=== PATIENT | female | born 1960 | race Caucasian/White ===

== ENCOUNTER → 2017-11-29 08:06 | Outpatient (CLI) | payer OTHER, SELFPAY ==
--- NOTE | 2017-11-29 | DI.US.S_ITS ---
PROCEDURE: US ABDOMEN COMPLETE INDICATIONS: UPPER RIGHT AND LEFT QUADRANT PAIN TECHNIQUE: Real-time scanning was performed of the abdominal and retroperitoneal organs, with image documentation. COMPARISON: [facility], US, ABDOMEN COMPLETE, 10/11/2014, 11:39. FINDINGS: Liver: Liver is normal in size and homogeneous in echotexture. A 9 mm diameter cyst is present within the right hepatic lobe. Gallbladder: The gallbladder wall is 2 mm thick. No stones, sludge, sonographic Alejo's sign, or pericholecystic fluid. Biliary ducts: Intrahepatic bile ducts are non-dilated. Extrahepatic bile duct caliber measures 5 mm. Normal is 6-7 mm or less in diameter, or 10 mm or less post-cholecystectomy. Pancreas: Visualized portions of the pancreas are sonographically normal. Spleen: Spleen is normal in size and homogeneous in echotexture. Kidneys: Kidneys are normal in size and echotexture. Right kidney measures 10.8 cm long; left kidney measures 11.1 cm long. No hydronephrosis or nephrolithiasis. No solid masses. An echogenic mass is present within the central left kidney which measures 2.5 x 1.9 x 2.8 cm and likely represents an angiomyolipoma. This measured 2.3 x 1.9 x 3.0 cm on the study dated 10/11/14. Aorta: Visualized aorta is normal in caliber at less than 3 cm. Iliacs: Proximal common iliac arteries are normal in caliber at less than 2.5 cm. IVC: Intrahepatic inferior vena cava is patent. Miscellaneous: No free abdominal fluid. IMPRESSION: 1. No cholelithiasis or findings to suggest choledocholithiasis or acute cholecystitis. 2. Stable left angiomyolipoma. Dictated by: Demi Mccartney M.D. on 11/29/2017 at 10:45 Approved by: Demi Mccartney M.D. on 11/29/2017 at 10:48
== END ==
PROVIDERS: Family Provider Specialist; PCP Specialist; Visit Provider Naturopath
DX: D17.71 Benign lipomatous neoplasm of kidney (principal); K76.89 Other specified diseases of liver; R10.11 Right upper quadrant pain; R10.12 Left upper quadrant pain
CPT/HCPCS: 76700

== ENCOUNTER → 2018-06-07 08:36 | Outpatient (CLI) | payer OTHER, SELFPAY ==
--- NOTE | 2018-06-07 | DI.MRI.S_ITS ---
PROCEDURE: MR PELVIS WO CON INDICATIONS: LOW BACK PAIN LEFT HIP PAIN TECHNIQUE: Noncontrast axial and oblique coronal T1 spin echo and STIR through the sacroiliac joints. COMPARISON: None. FINDINGS: Image quality: Excellent. Bones: The sacroiliac joints appear intact. No adjacent bone marrow edema to suggest active sacroiliitis. No bony ankylosis. No suspicious marrow space occupying lesions. Soft tissues: No presacral masses. Rectum appears normal in caliber and wall thickness. No pathologic free pelvic fluid. Incidental Tarlov cyst seen at the S2 level of the sacrum. IMPRESSION: Unremarkable appearance of the sacroiliac joints bilaterally. Dictated by: Arya Maguire M.D. on 06/07/2018 at 10:42 Approved by: Arya Maguire M.D. on 06/07/2018 at 10:49
--- NOTE | 2018-06-07 | DI.MRI.S_ITS ---
PROCEDURE: MR LUMBAR SPINE WO CON INDICATIONS: LOW BACK PAIN LEFT HIP PAIN TECHNIQUE: Noncontrast sagittal T1 spin echo and T2 fast echo, sagittal STIR, axial T1 and T2 fast spin echo through the lumbar spine. In cases with scoliosis, additional coronal T2 fast spin echo may be performed. COMPARISON: None. FINDINGS: Image quality: Excellent. Alignment and Curvature: There is normal bony alignment. Bone Marrow: There is scattered T2 hyperintense foci seen throughout the lumbar spine, for example within the L2 and L3 vertebral bodies, also the T12 vertebral body. Some of these demonstrate T1 hyperintensity in keeping with hemangiomas although others are indeterminate. No acute vertebral body compression fractures. Spinal Cord: Conus medullaris terminates at the L2 level. Visualized cord demonstrates normal signal and size. Paraspinous Soft Tissues: No paravertebral masses. Presumed T2 hyperintense left renal cyst. Bilateral Tarlov cysts measuring 2.0 cm at the S2 level. L1-L2: Normal appearance. L2-L3: Normal appearance. L3-L4: Minimal broad-based posterior disc bulge and bilateral facet arthropathy. No canal stenosis. No definite lateral recess narrowing. No foraminal stenosis. L4-L5: Broad-based posterior disc bulge and bilateral facet arthropathy. Mild canal narrowing. Ligamentum flavum hypertrophy. Symmetric partial effacement of the lateral recesses. Mild bilateral foraminal narrowing L5-S1: Broad-based posterior disc bulge and bilateral facet arthropathy. No central canal stenosis. Mild symmetric partial effacement of the lateral recesses. No foraminal stenosis. Sacroiliac joints demonstrate normal signal intensity, without ankylosis, bilaterally IMPRESSION: Lower lumbar degenerative disc disease and facet arthropathy. Mild L4-L5 canal narrowing. Bilateral subarticular narrowing, most prominently at L4-L5 although appears symmetric. Mild bilateral L4-L5 foraminal stenoses. Multilevel marrow signal changes, some of which demonstrate characteristic appearance of vertebral body hemangiomas although others are technically indeterminate. Please correlate clinically and if needed, bone scan could be performed or continued long-term surveillance with contrast-enhanced lumbar spine MRI Unremarkable appearance of the sacroiliac joints. Dictated by: Arya Maguire M.D. on 06/07/2018 at 10:08 Approved by: Arya Maguire M.D. on 06/07/2018 at 10:25
== END ==
PROVIDERS: Family Provider Specialist; PCP Specialist; Visit Provider Family Medicine
DX: M54.5 Low back pain (principal); M25.552 Pain in left hip; M51.36 Other intervertebral disc degeneration, lumbar region; M51.37 Other intervertebral disc degeneration, lumbosacral region; M47.816 Spondylosis without myelopathy or radiculopathy, lumbar region; M47.817 Spondylosis without myelopathy or radiculopathy, lumbosacral region; M48.061 Spinal stenosis, lumbar region without neurogenic claudication
CPT/HCPCS: 72148; 72195

== ENCOUNTER → 2018-06-15 10:42 | Outpatient (CLI) | payer OTHER, SELFPAY ==
--- NOTE | 2018-06-15 | DI.NM.S_ITS ---
PROCEDURE: NM BONE SCAN WHOLE BODY RADIOPHARMACEUTICAL: 23.0 mCi Tc-99m MDP IV. INDICATIONS: LOW BACK PAIN/ABNORMAL BRAIN MRI TECHNIQUE: Delayed whole-body scintigrams were obtained approximately 3-4 hours after intravenous injection of radiotracer. Anterior and posterior views were acquired from vertex to feet. Additional left and right oblique views of the pelvis and lower abdomen were obtained. COMPARISON: [facility], CT, SOFT TISSUE NECK W CONTRAST, 06/16/2015, 11:10. [facility], MR, MR LUMBAR SPINE WO CON, 06/07/2018, 8:51. [facility], MR, MR PELVIS WO CON, 06/07/2018, 9:15. FINDINGS: No abnormal isotope uptake is seen that would indicate presence of trauma or underlying infection or neoplasm. Note is made of a mild convex rightward scoliosis centered at the mid thoracic spine, approximately 8? estimated of dextroscoliosis. IMPRESSION: No bone scan abnormality is seen that would indicate trauma infection or neoplasm. Mild dextroscoliosis centered at the midthoracic spine. No significant degenerative changes found along the cervical, thoracic and lumbosacral spine. Sacroiliac joints appear normal. Dictated by: Jeremiah Messina M.D. on 06/15/2018 at 15:16 Approved by: Jeremiah Messina M.D. on 06/15/2018 at 15:19
== END ==
PROVIDERS: Family Provider Specialist; PCP Specialist; Visit Provider Family Medicine
DX: M54.5 Low back pain (principal)
CPT/HCPCS: 78306; A9503

== ENCOUNTER → 2018-07-17 10:48 | Outpatient (CLI) | payer OTHER, SELFPAY ==
--- NOTE | 2018-07-17 | DI.MG.S_ITS ---
BILATERAL DIGITAL SCREENING MAMMOGRAM 3D/2D WITH CAD: 07/17/2018 Comparison is made to exams dated: 05/29/2017 mammogram, 04/08/2016 mammogram, and 02/09/2015 mammogram - [facility]. The tissue of both breasts is heterogeneously dense. This may lower the sensitivity of mammography. Current study was also evaluated with a Computer Aided Detection (CAD) system. There is an oval equal density asymmetry with an indistinct margin in the right breast middle depth superior region seen on the mediolateral oblique view only. No other significant masses, calcifications, or other findings are seen in either breast. IMPRESSION: INCOMPLETE: NEEDS ADDITIONAL IMAGING EVALUATION The oval equal density asymmetry in the right breast is indeterminate. Mediolateral and spot compression views as well as additional views with possible ultrasound are recommended. This exam was interpreted at Station ID: [id number]. NOTE: For mammograms, a report in lay terms will be sent to the patient. Approximately 15% of breast malignancies will not be visualized mammographically. In the management of a palpable breast mass, a negative mammogram must not discourage biopsy of a clinically suspicious lesion. Electronically Signed By: Yury maldonado/katharine:07/17/2018 16:40:06 letter sent: Additional Imaging Needed ACR BI-RADS Category 0: Incomplete 3340F
== END ==
PROVIDERS: Family Provider Specialist; PCP Family Medicine; Visit Provider Family Medicine
DX: Z12.31 Encounter for screening mammogram for malignant neoplasm of breast (principal)
CPT/HCPCS: 77063; 77067

== ENCOUNTER → 2018-08-10 08:43 | Outpatient (CLI) | payer OTHER, SELFPAY ==
--- NOTE | 2018-08-10 | DI.US.S_ITS ---
LIMITED ULTRASOUND OF RIGHT BREAST: 08/10/2018 CLINICAL: Additional evaluation requested from prior study. Comparison is made to exams dated: 08/10/2018 mammogram, 07/17/2018 mammogram, 05/29/2017 mammogram, 04/08/2016 mammogram, and 02/09/2015 mammogram - [facility]. Real-time and Doppler ultrasound of the right breast upper outer quadrant and retroareolar regions were performed. Krishnamurthy scale images of the real-time examination were reviewed. No underlying breast mass or abnormality is identified. There is no convincing ultrasound correlate for the previously identified 0.5 cm oval equal density asymmetry with an indistinct margin in the right breast middle depth superior region seen on the mediolateral oblique view only on comparison screening mammograms. There is an incidentally noted 1.1 x 1.2 x 0.5 cm benign oval circumscribed mass in the retroareolar right breast which demonstrates no vascularity on Doppler ultrasound. There is a 0.4 x 0.3 x 0.2 cm benign oval circumscribed peripherally hypoechoic and centrally hyperechoic lymph node in the right breast at 9:30 position 7 cm from the nipple, which demonstrates no vascularity on Doppler ultrasound and no suspicious cortical thickening. There is a 0.7 x 0.5 x 0.3 cm benign oval circumscribed peripherally hypoechoic and centrally hyperechoic lymph node in the right breast at 9:30 position 5 cm from the nipple, which demonstrates hilar vascularity on Doppler ultrasound and no suspicious cortical thickening. IMPRESSION: PROBABLY BENIGN 1) No convincing ultrasound correlate for the 0.5 cm asymmetry in the superior right breast seen on screening and diagnostic mammography. A follow-up mammogram and targeted ultrasound in 6 months is recommended to demonstrate stability. The patient is advised to monitor her breasts and to return sooner for re-evaluation should she feel anything grow or change. 2) 1.1 cm oval circumscribed hypoechoic mass in the retroareolar right breast that is most consistent with a prominent fat lobule, less likely a fibroadenoma. A follow-up mammogram and targeted ultrasound in 6 months is recommended to demonstrate stability. The patient is advised to monitor her breasts and to return sooner for re-evaluation should she feel anything grow or change. 3) Benign-appearing intramammary lymph nodes in the right breast at 9:30 position 7 cm from the nipple and at 9:30 position 5 cm from the nipple. This exam was interpreted at Station ID: [id number]. Electronically Signed By: Juancarlos Dixon M.D. ecl/:08/13/2018 09:40:44 letter sent: Followup Recommended Ultrasound BI-RADS: 3 Probably benign
--- NOTE | 2018-08-10 | DI.MG.S_ITS ---
UNILATERAL RIGHT DIGITAL DIAGNOSTIC MAMMOGRAM 3D/2D WITH ADDITIONAL VIEWS: 08/10/2018 CLINICAL: Additional evaluation requested from prior study. Comparison is made to exams dated: 07/17/2018 mammogram, 05/29/2017 mammogram, and 04/08/2016 mammogram - [facility]. The tissue of right breast is heterogeneously dense. This may lower the sensitivity of mammography. Previously identified 0.5 cm oval equal density asymmetry with an indistinct margin in the right breast middle depth superior region seen on the mediolateral oblique view only on comparison screening mammograms persists with additional views, and localizes to the upper outer right breast on additional views. IMPRESSION: INCOMPLETE: NEEDS ADDITIONAL IMAGING EVALUATION Previously identified oval equal density asymmetry with an indistinct margin in the right breast middle depth superior region seen on the mediolateral oblique view only on comparison screening mammograms persists with additional views. A targeted ultrasound is recommended for further evaluation, and will be performed immediately following this exam. This exam was interpreted at Station ID: [id number]. NOTE: For mammograms, a report in lay terms will be sent to the patient. Approximately 15% of breast malignancies will not be visualized mammographically. In the management of a palpable breast mass, a negative mammogram must not discourage biopsy of a clinically suspicious lesion. Electronically Signed By: Juancarlos Dixon M.D. ecl/:08/10/2018 13:20:59 letter sent: Additional Imaging Needed ACR BI-RADS Category 0: Incomplete 3340F
== END ==
PROVIDERS: Family Provider Specialist; PCP Family Medicine; Visit Provider Family Medicine
DX: R92.8 Other abnormal and inconclusive findings on diagnostic imaging of breast (principal); N63.10 Unspecified lump in the right breast, unspecified quadrant; R59.0 Localized enlarged lymph nodes
CPT/HCPCS: 76642; 77065; G0279

== ENCOUNTER → 2019-02-25 08:01 | Outpatient (CLI) | payer OTHER, SELFPAY ==
--- NOTE | 2019-02-25 | DI.MG.S_ITS ---
UNILATERAL RIGHT DIGITAL DIAGNOSTIC MAMMOGRAM 3D/2D SHORT-TERM FOLLOW-UP: 02/25/2019 CLINICAL: Patient returns for a 6 month follow up of the right breast. Comparison is made to exams dated: 07/17/2018 mammogram, 05/29/2017 mammogram, and 04/08/2016 mammogram - [facility]. The tissue of right breast is heterogeneously dense. This may lower the sensitivity of mammography. Redemonstration of the previously described oval equal density asymmetry in the right breast middle depth superior region seen on the mediolateral oblique view only. This is less prominent and decreased in size. No other significant masses or calcifications are seen in the breast. IMPRESSION: INCOMPLETE: NEEDS ADDITIONAL IMAGING EVALUATION The oval equal density asymmetry in the right breast remains indeterminate. Further evaluation by sonogram is recommended which is scheduled to immediately follow this examination. This exam was interpreted at Station ID: [id number]. NOTE: For mammograms, a report in lay terms will be sent to the patient. Approximately 15% of breast malignancies will not be visualized mammographically. In the management of a palpable breast mass, a negative mammogram must not discourage biopsy of a clinically suspicious lesion. Electronically Signed By: Dago Carlos M.D. aty/:02/25/2019 08:57:58 ACR BI-RADS Category 0: Incomplete 3340F
--- NOTE | 2019-02-25 | DI.US.S_ITS ---
ULTRASOUND OF RIGHT BREAST AND AXILLA: 02/25/2019 CLINICAL: Additional evaluation requested from prior study., 6 month follow-up. Comparison is made to exams dated: 02/25/2019 mammogram, 08/10/2018 ultrasound, 08/10/2018 mammogram, 07/17/2018 mammogram, 05/29/2017 mammogram, and 04/08/2016 mammogram - [facility]. Color flow and real-time ultrasound of the right breast axilla were performed. Krishnamurthy scale images of the real-time examination were reviewed. No significant abnormalities were seen sonographically in the right axilla. Previously described 1.1 cm oval circumscribed hypoechoic mass in the retroareolar right breast is again noted but appears less mass-like and likely represents a prominent fat lobule of breast tissue. No new or other suspicious abnormalities are seen in the right breast. IMPRESSION: PROBABLY BENIGN There is no abnormality seen in the right breast to correspond with the mammography finding in the superior aspect middle depth. The 1.1 cm oval circumscribed hypoechoic mass in the retroareolar right breast is again noted but appears less mass-like and likely represents a prominent fat lobule of breast tissue and less likely a fibroadenoma. A follow-up bilateral mammogram and a right ultrasound in 6 months is recommended to demonstrate stability. This exam was interpreted at Station ID: [id number]. Electronically Signed By: Dago Carlos M.D. at/:02/25/2019 09:34:53 letter sent: Followup Recommended Ultrasound BI-RADS: 3 Probably benign
== END ==
PROVIDERS: Family Provider Specialist; PCP Family Medicine; Visit Provider Family Medicine
DX: R92.8 Other abnormal and inconclusive findings on diagnostic imaging of breast (principal); N63.10 Unspecified lump in the right breast, unspecified quadrant
CPT/HCPCS: 76642; 77065; G0279

== ENCOUNTER → 2020-03-03 12:57 | Outpatient (CLI) | payer OTHER, SELFPAY ==
--- NOTE | 2020-03-03 13:40 | DI.MG.S_ITS ---
Patient Name: JOANNE PATEL date: 1960 Sex: F Attending Physician: Zenon Indications: Date: 03/03/2020 13:04 At the request of: JOSE CARLOS JIMÉNEZ Procedure: MM diagnostic mammo BI BILATERAL DIGITAL DIAGNOSTIC MAMMOGRAM 3D/2D: 03/03/2020 CLINICAL: One year follow up. Comparison is made to exams dated: 02/25/2019 mammogram, 08/10/2018 mammogram, 07/17/2018 mammogram, 05/29/2017 mammogram, 04/08/2016 mammogram, and 02/25/2019 [facility]. The tissue of both breasts is heterogeneously dense. This may lower the sensitivity of mammography. There is a oval equal density Asymmetry in the right breast middle depth superior region seen on the mediolateral oblique view only. This is less prominent. This was not seen on prior ultrasounds. No other significant masses, calcifications, or other findings are seen in either breast. IMPRESSION: INCOMPLETE: NEEDS ADDITIONAL IMAGING EVALUATION Asymmetry in the right breast is less prominent and remains indeterminate. A targeted ultrasound is recommended and will immediately follow. Additionally, recommend ultrasound of the retroareolar right breast for possible mass seen on prior ultrasounds. This exam was interpreted at Station ID: [id number]. NOTE: For mammograms, a report in lay terms will be sent to the patient. Approximately 15% of breast malignancies will not be visualized mammographically. In the management of a palpable breast mass, a negative mammogram must not discourage biopsy of a clinically suspicious lesion. Electronically Signed By: Devonte Henson M.D. Continued Report - Page 2 of 2 Patient Name: JOANNE PATEL date: 1960 Sex: F Attending Physician: Zenon Indications: Date: 03/03/2020 13:04 At the request of: JOSE CARLOS JIMÉNEZ Procedure: MM diagnostic mammo BI slc/:03/03/2020 13:40:16 ACR BI-RADS Category 0: Incomplete 3340F
--- NOTE | 2020-03-03 13:58 | DI.US.S_ITS ---
Patient Name: JOANNE PATEL date: 1960 Sex: F Attending Physician: Zenon Indications: Date: 03/03/2020 13:51 At the request of: JOSE CARLOS JIMÉNEZ Procedure: US breast RT limited LIMITED ULTRASOUND OF RIGHT BREAST: 03/03/2020 CLINICAL: Patient returns today to evaluate a focal asymmetry in the right breast. Comparison is made to exams dated: 03/03/2020 mammogram, 02/25/2019 ultrasound, 02/25/2019 mammogram, and 08/10/2018 ultrasound - [facility]. Color flow and real-time ultrasound of the right breast 9-10 o'clock, and retroareolar regions were performed. Krishnamurthy scale images of the real-time examination were reviewed. No significant abnormalities were seen sonographically in the right breast superior lateral quadrant in the region of asymmetry seen on mammogram. No retroareolar mass demonstrated. There is a benign oval normal lymph node with a circumscribed margin in the right breast at 9 o'clock posterior depth again seen. This oval normal lymph node displays fatty hilum. No cortical thickening. IMPRESSION: PROBABLY BENIGN No sonographic evidence of malignancy. No ultrasound correlate to the asymmetry. No retroareolar mass. Benign intramammary lymph node is seen. A follow-up mammogram in 6 months is recommended to demonstrate stability of the asymmetry. Exam findings were conveyed to the patient. This exam was interpreted at Station ID: [id number]. Electronically Signed By: Devonte Henson M.D. slc/:03/03/2020 17:07:40 Continued Report - Page 2 of 2 Patient Name: JOANNE PATEL date: 1960 Sex: F Attending Physician: Zenon Indications: Date: 03/03/2020 13:51 At the request of: JOSE CARLOS JIMÉNEZ Procedure: US breast RT limited
== END ==
PROVIDERS: Family Provider Specialist; PCP Internal Medicine; Referring Provider Internal Medicine; Visit Provider Internal Medicine
DX: R92.8 Other abnormal and inconclusive findings on diagnostic imaging of breast (principal); N64.89 Other specified disorders of breast; M81.0 Age-related osteoporosis without current pathological fracture; Z78.0 Asymptomatic menopausal state; E06.3 Autoimmune thyroiditis
CPT/HCPCS: 76642; 77066; 77080; G0279

== ENCOUNTER → 2020-11-12 12:41 | Outpatient (CLI) | payer OTHER, SELFPAY ==
--- NOTE | 2020-11-12 | DI.MG.S_ITS ---
UNILATERAL RIGHT DIGITAL DIAGNOSTIC MAMMOGRAM 3D/2D SHORT-TERM FOLLOW-UP: 11/12/2020 CLINICAL: Short term follow up of the right breast. Comparison is made to exams dated: 03/03/2020 mammogram, 02/25/2019 mammogram, 08/10/2018 mammogram, 07/17/2018 mammogram, 03/03/2020 ultrasound, and 02/25/2019 ultrasound - [facility]. The tissue of right breast is heterogeneously dense. This may lower the sensitivity of mammography. There is a stable benign oval equal density asymmetry in the right breast middle depth superior region seen on the mediolateral oblique view only. This was not seen on the prior ultrasound. This asymmetry has been stable or less prominent dating back to the prior exam from 07/17/2018, and is therefore considered benign. No other significant masses or calcifications are seen in the breast. IMPRESSION: BENIGN There is no mammographic evidence of malignancy. Return to annual mammogram screening schedule is recommended. This exam was interpreted at Station ID: [id number]. NOTE: For mammograms, a report in lay terms will be sent to the patient. Approximately 15% of breast malignancies will not be visualized mammographically. In the management of a palpable breast mass, a negative mammogram must not discourage biopsy of a clinically suspicious lesion. Electronically Signed By: Raúl hinton/katharine:11/12/2020 13:32:10 letter sent: Normal Exam ACR BI-RADS Category 2: Benign Finding(s) 3342F
== END ==
PROVIDERS: Family Provider Specialist; PCP Internal Medicine; Referring Provider Internal Medicine; Visit Provider Internal Medicine
DX: R92.8 Other abnormal and inconclusive findings on diagnostic imaging of breast (principal); N64.89 Other specified disorders of breast
CPT/HCPCS: 77065; G0279

== ENCOUNTER → 2021-05-01 13:58 | Outpatient (CLI) | payer OTHER, SELFPAY ==
--- NOTE | 2021-05-01 | DI.MG.S_ITS ---
BILATERAL DIGITAL SCREENING MAMMOGRAM 3D/2D WITH CAD: 05/01/2021 CLINICAL: Routine screening. Comparison is made to exams dated: 03/03/2020 mammogram, 07/17/2018 mammogram, and 05/29/2017 mammogram - [facility]. There are scattered fibroglandular elements in both breasts. Current study was also evaluated with a Computer Aided Detection (CAD) system. No significant masses, calcifications, or other findings are seen in either breast. There has been no significant interval change. IMPRESSION: NEGATIVE There is no mammographic evidence of malignancy. A 1 year screening mammogram is recommended. This exam was interpreted at Station ID: [id number]. NOTE: For mammograms, a report in lay terms will be sent to the patient. Approximately 15% of breast malignancies will not be visualized mammographically. In the management of a palpable breast mass, a negative mammogram must not discourage biopsy of a clinically suspicious lesion. Electronically Signed By: Marixa govea/katharine:05/03/2021 11:36:52 letter sent: Normal Exam ACR BI-RADS Category 1: Negative 3341F
== END ==
PROVIDERS: Family Provider Specialist; PCP Internal Medicine; Referring Provider Internal Medicine; Visit Provider Internal Medicine
DX: Z12.31 Encounter for screening mammogram for malignant neoplasm of breast (principal)
CPT/HCPCS: 77063; 77067

== ENCOUNTER → 2022-05-03 09:48 | Outpatient (CLI) | payer OTHER, SELFPAY ==
--- NOTE | 2022-05-03 | DI.MG.S_ITS ---
BILATERAL DIGITAL SCREENING MAMMOGRAM 3D/2D WITH CAD: 05/03/2022 CLINICAL: Routine screening. Comparison is made to exams dated: 05/01/2021 mammogram, 11/12/2020 mammogram, 03/03/2020 mammogram, 02/25/2019 mammogram, 08/10/2018 mammogram, and 07/17/2018 mammogram - [facility]. There are scattered areas of fibroglandular density in both breasts (category b / 25%-50% glandular tissue). Current study was also evaluated with a Computer Aided Detection (CAD) system. There is a possible developing irregular high density asymmetry in the left breast at 5 o'clock middle depth. No other significant masses, calcifications, or other findings are seen in either breast. IMPRESSION: INCOMPLETE: NEEDS ADDITIONAL IMAGING EVALUATION The possible developing irregular high density asymmetry in the left breast is indeterminate. Additional views with possible ultrasound are recommended. Based on the Tyrer Cuzick model (a risk assessment model) the patient's lifetime risk is 6.9% and her 10 year risk is 3.0%. According to the ACR, ACS, and NCCN guidelines, an annual breast MRI exam along with mammogram is recommended if the patient's lifetime risk is 20% or greater. This exam was interpreted at Station ID: [id number]. NOTE: For mammograms, a report in lay terms will be sent to the patient. Approximately 15% of breast malignancies will not be visualized mammographically. In the management of a palpable breast mass, a negative mammogram must not discourage biopsy of a clinically suspicious lesion. Electronically Signed By: Marixa govea/katharine:05/03/2022 13:32:43 letter sent: Additional Imaging Needed ACR BI-RADS Category 0: Incomplete 3340F
== END ==
PROVIDERS: Family Provider Specialist; PCP Internal Medicine; Referring Provider Internal Medicine; Visit Provider Internal Medicine
DX: Z12.31 Encounter for screening mammogram for malignant neoplasm of breast (principal); M81.0 Age-related osteoporosis without current pathological fracture; Z78.0 Asymptomatic menopausal state
CPT/HCPCS: 77063; 77067; 77080

== ENCOUNTER → 2023-05-16 15:48 | Outpatient (CLI) | payer OTHER, SELFPAY ==
--- NOTE | 2023-05-16 | DI.MG.S_ITS ---
BILATERAL DIGITAL SCREENING MAMMOGRAM 3D/2D WITH CAD: 05/16/2023 CLINICAL: Routine screening. Comparison is made to exams dated: 05/03/2022 mammogram, 05/01/2021 mammogram, and 03/03/2020 [facility]. Both breasts are heterogeneously dense, which may obscure small masses (category c / 51-75% glandular tissue). Current study was also evaluated with a Computer Aided Detection (CAD) system. No significant masses, calcifications, or other findings are seen in either breast. There has been no significant interval change. IMPRESSION: NEGATIVE There is no mammographic evidence of malignancy. A 1 year screening mammogram is recommended. Based on the Tyrer Cuzick model (a risk assessment model) the patient's lifetime risk is 10.1% and her 10 year risk is 4.5%. According to the ACR, ACS, and NCCN guidelines, an annual breast MRI exam along with mammogram is recommended if the patient's lifetime risk is 20% or greater. This exam was interpreted at Station ID: [id number]. NOTE: For mammograms, a report in lay terms will be sent to the patient. Approximately 15% of breast malignancies will not be visualized mammographically. In the management of a palpable breast mass, a negative mammogram must not discourage biopsy of a clinically suspicious lesion. Electronically Signed By: Giacomo hernández/katharine:05/17/2023 08:27:15 letter sent: Normal Exam ACR BI-RADS Category 1: Negative [id number]
== END ==
PROVIDERS: Family Provider Specialist; PCP Internal Medicine; Referring Provider Internal Medicine; Visit Provider Internal Medicine
DX: Z12.31 Encounter for screening mammogram for malignant neoplasm of breast (principal)
CPT/HCPCS: 77063; 77067

== ENCOUNTER → 2024-03-19 14:34 | Outpatient (CLI) | payer OTHER, SELFPAY ==
--- NOTE | 2024-03-19 14:37 | DI.RAD.S_ITS ---
PROCEDURE: XR THORACIC SPINE 3V INDICATIONS: BACK PAIN TECHNIQUE: 3 views of the thoracic spine were acquired. COMPARISON: None. FINDINGS: Thoracic spine curvature and alignment: Mild idiopathic scoliotic curve appreciated. Bones: There are no osseous abnormalities. Disc spaces: Moderate degenerative disc disease seen throughout the mid lower thoracic spine. Intervertebral foramen: Grossly normal in width. Soft tissues: No soft tissue swelling, calcification or mass. 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 Dictated by: Kwan Issa M.D. on 03/20/2024 at 10:59 Approved by: Kwan Issa M.D. on 03/20/2024 at 11:00
== END ==
LOC: RAD 14:35
PROVIDERS: Family Provider Specialist; PCP Internal Medicine; Referring Provider Internal Medicine; Visit Provider Internal Medicine
DX: M51.34 Other intervertebral disc degeneration, thoracic region (principal); M54.9 Dorsalgia, unspecified
CPT/HCPCS: 72072

== ENCOUNTER → 2024-06-26 08:48 | Outpatient (CLI) | payer OTHER, SELFPAY ==
--- NOTE | 2024-06-26 08:49 | DI.US.S_ITS ---
PROCEDURE: US ABDOMEN COMPLETE INDICATIONS: ANGIOMYOLIPOMA KIDNEY/LIVER CYSTS TECHNIQUE: Real-time scanning was performed of the abdominal and retroperitoneal organs, with image documentation. COMPARISON: [facility], [place], US ABDOMEN COMPLETE, 11/29/2017, 8:44. (Additional prior imaging is not available for review from the archive at the time of this dictation.) FINDINGS: Liver: Liver is normal in size and demonstrates a 2.8 cm cyst within the right liver lobe, of with internal debris. Gallbladder: No findings of gallstones or sludge are seen. The gallbladder wall is not thickened, measuring 3 mm or less. No specific pericholecystic fluid is seen. The sonographic Alejo sign is negative. Biliary ducts: Intrahepatic bile ducts are non-dilated. Extrahepatic bile duct caliber measures 6.6 mm. Normal is 6-7 mm or less in diameter, or 10 mm or less post-cholecystectomy. Pancreas: Visualized portions of the pancreas are sonographically normal. Spleen: Spleen is normal in size and homogeneous in echotexture. Kidneys: Kidneys are normal in size and echotexture. Right kidney measures 9.2 cm long; left kidney measures 10.7 cm long. No hydronephrosis or nephrolithiasis. There is a hyperechoic nodule seen at the superior mid aspect of the left kidney measuring 2.3 x 2 x 2 cm. Aorta: Visualized aorta is normal in caliber at less than 3 cm. Iliacs: Proximal common iliac arteries are normal in caliber at less than 2.5 cm. IVC: Intrahepatic inferior vena cava is patent. Miscellaneous: No free abdominal fluid. IMPRESSION: Presumed angiomyolipoma again seen involving the superior mid left kidney, measuring up to 2.3 cm on these images. There is a complex cyst seen involving the right liver, measuring up to 2.8 cm. Dictated by: Tom Hope M.D. on 06/26/2024 at 10:08 Approved by: Tom Hope M.D. on 06/26/2024 at 10:19
--- NOTE | 2024-06-26 08:49 | DI.RAD.S_ITS ---
PROCEDURE: XR DEXA AXIAL SKELETON INDICATIONS: OSTEOPOROSIS SCREENING/ANGIOMYOLIPOMA KIDNEY/LIVER COMPARISON: [facility], CR, XR DEXA AXIAL SKELETON, 05/03/2022, 11:08. [facility], CR, XR DEXA AXIAL SKELETON, 03/03/2020, 14:41. FINDINGS: Lumbar Spine: L1-L4. Bone mineral density 0.704 g/cm2, T score -3.1. Left Hip: Bone mineral density 0.751 g/cm2, T score -1.6. Left Femoral Neck: Bone mineral density 0.607 g/cm2, T score -2.2. Fracture Risk Calculation (when applicable): 10-year fracture risk of a major osteoporotic fracture 11% percent and of a hip fracture 1.8 percent. (T score greater or equal to -1.0 to: NORMAL) (T score from -1.1 to -2.4: OSTEOPENIA) (T score less than or equal to -2.5: OSTEOPOROSIS) IMPRESSION: Osteoporosis. Follow-up guidelines as follows: Osteoporosis: Consider a repeat DEXA and Vertebral Fracture Assessment (VFA) exam in 2 years or sooner if medically necessary, to reassess this patient's status. Osteopenia: Consider a repeat DEXA in 2-3 years to reassess this patient's status, or if there is a new clinical indication. Normal: Consider a repeat DEXA in 5 years or sooner, or if there is a new clinical indication. All treatment decisions require clinical judgment and consideration of individual patient factors, including patient preferences, comorbidities, previous drug use, risk factors not captured in the FRAX model (e.g., frailty, falls, vitamin D deficiency, increased bone turnover, interval significant decline in bone density ) and possible under- or over-estimation of fracture risk by FRAX. In addition, the NOF Guide recommends that FDA-approved medical therapies be considered in postmenopausal women and men age >= 50 years with a: * Hip or vertebral (clinical or morphometric) fracture * T-score of <=-2.5 at the spine or hip * Ten-year fracture probability by FRAX of >= 3% for hip fracture or >=20% for major osteoporotic fracture. People with diagnosed cases of osteoporosis or at high risk for fracture should have regular bone mineral density tests. For patients eligible for Medicare, routine testing is allowed once every 2 years. The testing frequency can be increased to one year for patients who have rapidly progressing disease, those who are receiving or discontinuing medical therapy to restore bone mass, or have additional risk factors. Dictated by: Devonte Henson M.D. on 06/27/2024 at 22:16 Approved by: Devonte Henson M.D. on 06/27/2024 at 22:25
== END ==
PROVIDERS: Family Provider Specialist; PCP Internal Medicine; Referring Provider Internal Medicine; Visit Provider Internal Medicine
DX: D17.71 Benign lipomatous neoplasm of kidney (principal); K76.89 Other specified diseases of liver; M81.0 Age-related osteoporosis without current pathological fracture; Z78.0 Asymptomatic menopausal state
CPT/HCPCS: 76700; 77080

== ENCOUNTER 2024-06-27 15:15 | Outpatient (RCR) | payer OTHER, SELFPAY ==
--- NOTE | 2024-03-13 12:54 | PT.OIE ---
Current Diagnoses Female genital prolapse, unspecified (03/13/24) Past Surgical History (Last Updated 01/24/18 @ 12:00 by Vanessa Ruiz) History of inguinal hernia repair History of third molar tooth extraction Status post LASIK surgery Visit Care Team Role Provider Type Debo Salcedo MD Family Provider Physician Specialty: ADZING AND BORING MACHINE HELPER Address: [address] [place] [address], [id number] Email: [email or web address] Braxton Attending Provider Advanced Resident Services Manager Primary Care Provider Referring Provider Specialty: Family Practice Address: [address] [place] [address], [id number] Email: [email or web address] Physical Therapy Initial Evaluation PT-OP-A Visit Information Start: 03/13/24 10:38 Freq: Status: Active Protocol: Document 03/13/24 10:30 [facility] (Rec: 03/13/24 12:26 [facility] [id number]) Out-Patient Physical Therapy Visit Information Visit Information Visit Type Initial Evaluation Visit Start Time 10:30 Visit Stop Time 11:15 Visit Number 1 Evaluation Information Evaluation Date 03/13/24 PT-OP-B Current Condition Start: 03/13/24 10:38 Freq: Status: Active Protocol: Document 03/13/24 10:40 [facility] (Rec: 03/13/24 11:20 [facility] [id number]) Current Condition History of Current Condition Onset Date 7-8 years ago Current Complaints pelvic pressure and heaviness along, stress incontinence throughout the day History of Current Condition over the last 7-8 years she is noting increased prolapse, she notes first thing that she doesn't feel the prolapse but then as she starts her day she will start to note her prolapse, its worse with bending and lifting. She stopped her exercises routine at the gym becuase she was worried about making anything worse. She is only walking at this time for exercise as she is not sure what is making the prolapse worse. Urinary Leaking can range from nothing to a slightly larger amount but Mikayla reports she is not aware of when the leakage is occurring but will notice a spot on her panty liner that can vary in severity day to day. She denies any leakage at night. past medical history includes osteoporosis and Mikayla would like to be able to engage in a weight training program at the gym without feeling that she is making the prolapse worse. Treatment Goals Patient/Caregiver Goals Decrease urinary leakage, improve strength and be able to engage in a weight lifting program at the gym PT-OP-I Pelvic Floor Start: 03/13/24 10:38 Freq: Status: Active Protocol: Document 03/13/24 10:40 [facility] (Rec: 03/13/24 12:41 [facility] [id number]) Pelvic Floor Assessment Urine Pelvic Floor Surgery No Urinary Symptoms Prolapse,Falling Out Feeling/ Heavy Other Urinary Symptoms urinary stress incontinence Leakage Size Small Leakage Cause Cough,Exercise,Lifting,Sneeze Other Leakage Causes leakage is happening throughout the day despite activity Leaks Per Day constant Voiding Frequency 6-8 times per day Nocturia 0-1 Urine Pad Type Panty Liner Pelvic Clock Pelvic Clock 12-3 Atrophy Pelvic Clock 3-6 Atrophy Pelvic Clock 6-9 Atrophy Pelvic Clock 9-12 Atrophy Pelvic Clock Other more atrophy noted on the left side of the pelvic clock Prolapse Prolapse Comments vaginal wall prolapse Contraction Ability Voluntary Contraction Weak Voluntary Relaxation Weak Manual Muscle Testing Left 1 Manual Muscle Testing Right 2 Manual Muscle Testing Anterior 1 Manual Muscle Testing Posterior 2 Muscle Endurance (Seconds) 4 PT-OP-Q Treatments Start: 03/13/24 12:26 Freq: Status: Active Protocol: Document 03/13/24 10:30 [facility] (Rec: 03/13/24 12:28 [facility] [id number]) Therapeutic Exercises Supine Exercises pelvic floor long holds Supine Exercise Name pt was advised she could use a ball for adductor assist with long holds Side bilateral Reps/Minutes 10 reps holding 10 seconds and relaxing 10 seconds PT-OP-T Assessment and Plan Start: 03/13/24 10:38 Freq: Status: Active Protocol: Document 03/13/24 10:30 [facility] (Rec: 03/13/24 12:37 [facility] [id number]) Physical Therapy Assessment Rehab Potential Rehabilitation Potential Excellent Evaluation Complexity Number of Personal Factors/Comorbidities 0 Number of Body Systems Impaired 1-2 Clinical Presentation at Evaluation Stable Impairments Impairments Activity Tolerance,Functional Activities,Strength,Tone Other Impairments urinary incontinence and pelvic organ prolapse Goals 3 Impairment decreased strength and endurance of the pelvic floor Short Term Goal (STG) Mikayla is able to sustain a pelvic floor contraction x 10 seconds in supine STG Duration x 5 weeks Correction Goal (LTG) Mikayla is able to sustain a pelvic floor contraction x 5 seconds or greater in standing LTG Duration x 12 weeks 2 Impairment pelvic pressure and heaviness with exertion and at the end of the day Short Term Goal (STG) Mikayla is educated on pelvic floor exercises to help with support to the pelvic organs and decreasing complaints of pelvic pressure STG Duration 4 weeks Correction Goal (LTG) Mikayla reports a overall significant decrease in pelvic pressure and heaviness LTG Duration 12 weeks 1 Impairment urinary stress incontinence happening throughout the day despite activity Correction Goal (LTG) Mikayla reports a overall reduction in urinary stress incontinence LTG Duration 12 weeks Assessment Summary Assessment Mikayla is a 64 year old female presenting to PT with uterovaginal prolapse with worsening complaints of urinary leakage. She reports her symptoms of pelvic organ prolapse began approx 7-8 years ago and are slowly worsening. She also has been diagnosed with osteoporosis and had been using weights at the gym but she feels that this may have exacerbated her prolapse symptoms. She seeks consult on a exercise program that is safe for her pelvic floor and that helps to keep her strong for her osteoporosis. With pelvic floor exam today Mikayla tests weak in her anterior pelvic floor and left lateral wall of the pelvic floor with a 1/5 MMT. She is a 2/5 MMT for the posterior and right lateral wall. Sustaining a pelvic floor contraction is difficult for her and she tends to hold her breath when attempting a pelvic floor contraction. Treatment will focus on pelvic floor isolation and endurance training starting in supine and progressing to upright positions. We will then focus on form with her exercises and help her to return to weight lifting using the correct technique and core control to decrease any downward pressure onto the pelvic floor. She is a good candidate for PT Physical Therapy Plan Frequency and Duration Frequency of Treatment 1x/Week Duration of treatment (weeks) 12 Plan of Care Start Date 03/13/24 Plan of Care End Date 05/29/24 Therapeutic Interventions Therapeutic Interventions Home Exercise Program,Patient/ Caregiver Education,Self-Care/ Home Management,Therapeutic Exercises Modalities Biofeedback Next Visit Focus/Plan Next Note Type Treatment Note Next Visit Plan Begin EMG biofeedback training for the pelvic floor next visit and start working towards lateral hip strengthening
--- NOTE | 2024-03-20 13:22 | PT.OTN ---
Current Diagnoses Female genital prolapse, unspecified (03/20/24) Physical Therapy Treatment Note PT-OP-A Visit Information Start: 03/13/24 10:38 Freq: Status: Active Protocol: Document 03/20/24 10:45 [facility] (Rec: 03/20/24 11:33 [facility] [id number]) Out-Patient Physical Therapy Visit Information Visit Information Visit Type Treatment Note Visit Start Time 10:45 Visit Stop Time 11:30 Visit Number 2 Evaluation Information Evaluation Date 03/13/24 PT-OP-B Current Condition Start: 03/13/24 10:38 Freq: Status: Active Protocol: Document 03/13/24 10:40 [facility] (Rec: 03/13/24 11:20 [facility] [id number]) Current Condition History of Current Condition Onset Date 7-8 years ago Current Complaints pelvic pressure and heaviness along, stress incontinence throughout the day History of Current Condition over the last 7-8 years she is noting increased prolapse, she notes first thing that she doesn't feel the prolapse but then as she starts her day she will start to note her prolapse, its worse with bending and lifting. She stopped her exercises routine at the gym becuase she was worried about making anything worse. She is only walking at this time for exercise as she is not sure what is making the prolapse worse. Urinary Leaking can range from nothing to a slightly larger amount but Mikayla reports she is not aware of when the leakage is occuring but will notice a spot on her panty liner that can vary in severity day to day. She denies any leakage at night. past medical history includes osteoporosis and Mikayla would like to be able to engage in a weight training program at the gym without feeling that she is making the prolapse worse. Treatment Goals Patient/Caregiver Goals Decrease urinary leakage, improve strength and be able to engage in a weight lifting program at the gym PT-OP-C Subjective Start: 03/20/24 10:45 Freq: Status: Active Protocol: Document 03/20/24 10:45 [facility] (Rec: 03/20/24 11:33 [facility] [id number]) OP-PT Subjective Patient Comments Patient Comments pt notes she did her exercises 2 times per day PT-OP-I Pelvic Floor Start: 03/13/24 10:38 Freq: Status: Active Protocol: Document 03/13/24 10:40 [facility] (Rec: 03/13/24 12:41 [facility] [id number]) Pelvic Floor Assessment Urine Pelvic Floor Surgery No Urinary Symptoms Prolapse,Falling Out Feeling/ Heavy Other Urinary Symptoms urinary stress incontinence Leakage Size Small Leakage Cause Cough,Exercise,Lifting,Sneeze Other Leakage Causes leakage is happening throuout the day despite activity Leaks Per Day constant Voiding Frequency 6-8 times per day Nocturia 0-1 Urine Pad Type Panty Liner Pelvic Clock Pelvic Clock 12-3 Atrophy Pelvic Clock 3-6 Atrophy Pelvic Clock 6-9 Atrophy Pelvic Clock 9-12 Atrophy Pelvic Clock Other more atrophy noted on the left side of the pelvic clock Prolapse Prolapse Comments vaginal wall prolapse Contraction Ability Voluntary Contraction Weak Voluntary Relaxation Weak Manual Muscle Testing Left 1 Manual Muscle Testing Right 2 Manual Muscle Testing Anterior 1 Manual Muscle Testing Posterior 2 Muscle Endurance (Seconds) 4 PT-OP-Q Treatments Start: 03/13/24 12:26 Freq: Status: Active Protocol: Document 03/20/24 10:45 [facility] (Rec: 03/20/24 11:33 [facility] [id number]) Therapeutic Exercises Supine Exercises ball squeeze with pelvic floor Reps/Minutes 5 sec hold with 10 sec relax pelvic floor long holds Supine Exercise Name pt was advised she could use a ball for adductor assist with long holds Side bilateral Reps/Minutes 10 reps holding 10 seconds and relaxing 10 seconds Comments average 19 and max 38 PT-OP-T Assessment and Plan Start: 03/13/24 10:38 Freq: Status: Active Protocol: Document 03/20/24 10:45 [facility] (Rec: 03/20/24 11:33 [facility] [id number]) Physical Therapy Assessment Goals 3 Impairment decreased strength and endurance of the pelvic floor Short Term Goal (STG) Mikayla is able to sustain a pelvic floor contraction x 10 seconds in supine STG Duration x 5 weeks Ambulatory Technologist Goal (LTG) Mikayla is able to sustain a pelvic floor contraction x 5 seconds or greater in standing LTG Duration x 12 weeks 2 Impairment pelvic pressure and heaviness with exertion and at the end of the day Short Term Goal (STG) Mikayla is educated on pelvic floor exercises to help with support to the pelvic organs and decreasing complaints of pelvic pressure STG Duration 4 weeks Ambulatory Technologist Goal (LTG) Mikayla reports a overall significant decrease in pelvic pressure and heaviness LTG Duration 12 weeks 1 Impairment urinary stress incontinence happening throughout the day despite activity Detention Goal (LTG) Mikayla reports a overall reduction in urinary stress incontinence LTG Duration 12 weeks Assessment Summary Assessment EMG biofeedback was initiated today for Mikayla for pelvic floor strenghtneing and she did quite well. She is able to contract the pelvic floor, sustaining a endurance contraction is more difficult for her to do. I added on both long holds, quick flicks, clam shells, and sit to stand with pelvic floor contraction today and she tolerated this well Physical Therapy Plan Frequency and Duration Frequency of Treatment 1x/Week Duration of treatment (weeks) 12 Plan of Care Start Date 03/13/24 Plan of Care End Date 05/29/24 Therapeutic Interventions Therapeutic Interventions Home Exercise Program,Patient/ Caregiver Education,Self-Care/ Home Management,Therapeutic Exercises Modalities Biofeedback Next Visit Focus/Plan Next Note Type Treatment Note Next Visit Plan review exercises given today and progress strengthening, review sit-stand and squat form
--- NOTE | 2024-04-03 12:54 | PT.OTN ---
Current Diagnoses Female genital prolapse, unspecified (04/03/24) Physical Therapy Treatment Note PT-OP-A Visit Information Start: 03/13/24 10:38 Freq: Status: Active Protocol: Document 04/03/24 10:46 [facility] (Rec: 04/03/24 11:34 [facility] [id number][facility] Out-Patient Physical Therapy Visit Information Visit Information Visit Type Treatment Note Visit Start Time 10:45 Visit Stop Time 11:30 Visit Number 3 Number of MARINE ELECTRICIAN HELPER Visits 0 Evaluation Information Evaluation Date 03/13/24 PT-OP-B Current Condition Start: 03/13/24 10:38 Freq: Status: Active Protocol: Document 03/13/24 10:40 [facility] (Rec: 03/13/24 11:20 [facility] [id number]) Current Condition History of Current Condition Onset Date 7-8 years ago Current Complaints pelvic pressure and heaviness along, stress incontinence throughout the day History of Current Condition over the last 7-8 years she is noting increased prolapse, she notes first thing that she doesn't feel the prolapse but then as she starts her day she will start to note her prolapse, its worse with bending and lifting. She stopped her exercises routine at the gym becuase she was worried about making anything worse. She is only walking at this time for exercise as she is not sure what is making the prolapse worse. Urinary Leaking can range from nothing to a slightly larger amount but Mikayla reports she is not aware of when the leakage is occuring but will notice a spot on her panty liner that can vary in severity day to day. She denies any leakage at night. past medical history includes osteoporosis and Mikayla would like to be able to engage in a weight training program at the gym without feeling that she is making the prolapse worse. Treatment Goals Patient/Caregiver Goals Decrease urinary leakage, improve strength and be able to engage in a weight lifting program at the gym PT-OP-C Subjective Start: 03/20/24 10:45 Freq: Status: Active Protocol: Document 04/03/24 10:46 [facility] (Rec: 04/03/24 11:34 [facility] [id number]) OP-PT Subjective Patient Comments Patient Comments pt notes she has been doing her exercises but she does notice that she has had more urgency at night in the past 1 .5 weeks. She does also note that she thinks sheis not feeling the prolapse as much PT-OP-I Pelvic Floor Start: 03/13/24 10:38 Freq: Status: Active Protocol: Document 03/13/24 10:40 [facility] (Rec: 03/13/24 12:41 [facility] [id number]) Pelvic Floor Assessment Urine Pelvic Floor Surgery No Urinary Symptoms Prolapse,Falling Out Feeling/ Heavy Other Urinary Symptoms urinary stress incontinence Leakage Size Small Leakage Cause Cough,Exercise,Lifting,Sneeze Other Leakage Causes leakage is happening throuout the day despite activity Leaks Per Day constant Voiding Frequency 6-8 times per day Nocturia 0-1 Urine Pad Type Panty Liner Pelvic Clock Pelvic Clock 12-3 Atrophy Pelvic Clock 3-6 Atrophy Pelvic Clock 6-9 Atrophy Pelvic Clock 9-12 Atrophy Pelvic Clock Other more atrophy noted on the left side of the pelvic clock Prolapse Prolapse Comments vaginal wall prolapse Contraction Ability Voluntary Contraction Weak Voluntary Relaxation Weak Manual Muscle Testing Left 1 Manual Muscle Testing Right 2 Manual Muscle Testing Anterior 1 Manual Muscle Testing Posterior 2 Muscle Endurance (Seconds) 4 PT-OP-Q Treatments Start: 03/13/24 12:26 Freq: Status: Active Protocol: Document 04/03/24 10:46 [facility] (Rec: 04/03/24 11:34 [facility] [id number]) Therapeutic Exercises Supine Exercises quick contractions Reps/Minutes x 10 reps ball squeeze with pelvic floor Reps/Minutes 10 second hold and 10 sec relax Comments 24.0 max 37 pelvic floor long holds Side bilateral Reps/Minutes 10 reps holding 10 seconds and relaxing 10 seconds Comments 21.3 and max of 35.6 Sitting Exercises sit-stand Reps/Minutes x 5 reps Standing Exercises standing squats Reps/Minutes pt to work on 2-3 sets of 10 Comments cues to engage the pelvic floor on return to stand PT-OP-T Assessment and Plan Start: 03/13/24 10:38 Freq: Status: Active Protocol: Document 04/03/24 10:46 [facility] (Rec: 04/03/24 11:34 [facility] [id number]) Physical Therapy Assessment Goals 3 Impairment decreased strength and endurance of the pelvic floor Short Term Goal (STG) Mikayla is able to sustain a pelvic floor contraction x 10 seconds in supine STG Duration x 5 weeks Consumer Lending Manager Goal (LTG) Mikayla is able to sustain a pelvic floor contraction x 5 seconds or greater in standing LTG Duration x 12 weeks 2 Impairment pelvic pressure and heaviness with exertion and at the end of the day Short Term Goal (STG) Mikayla is educated on pelvic floor exercises to help with support to the pelvic organs and decreasing complaints of pelvic pressure STG Duration 4 weeks Consumer Lending Manager Goal (LTG) Mikayla reports a overall significant decrease in pelvic pressure and heaviness LTG Duration 12 weeks 1 Impairment urinary stress incontinence happening throughout the day despite activity Consumer Lending Manager Goal (LTG) Mikayla reports a overall reduction in urinary stress incontinence LTG Duration 12 weeks Assessment Summary Assessment Mikayla is showing good progress with improved strength and she continues to be able to relax her pelvic floor to baseline. We worked on pelvic floor contraction with sit-stands and added in standing squats for HEP Physical Therapy Plan Frequency and Duration Frequency of Treatment 1x/Week Duration of treatment (weeks) 12 Plan of Care Start Date 03/13/24 Plan of Care End Date 05/29/24 Therapeutic Interventions Therapeutic Interventions Home Exercise Program,Patient/ Caregiver Education,Self-Care/ Home Management,Therapeutic Exercises Modalities Biofeedback Next Visit Focus/Plan Next Note Type Treatment Note Next Visit Plan lateral hip strengthening next visit and continue with pelvic floor strengtheing
--- NOTE | 2024-04-10 12:50 | PT.OTN ---
Current Diagnoses Female genital prolapse, unspecified (04/10/24) Physical Therapy Treatment Note PT-OP-A Visit Information Start: 03/13/24 10:38 Freq: Status: Active Protocol: Document 04/10/24 10:46 [facility] (Rec: 04/10/24 11:33 [facility] [id number]) Out-Patient Physical Therapy Visit Information Visit Information Visit Type Treatment Note Visit Start Time 10:45 Visit Stop Time 11:30 Visit Number 4 Number of TOOL STRAIGHTENER Visits 0 PT-OP-B Current Condition Start: 03/13/24 10:38 Freq: Status: Active Protocol: Document 03/13/24 10:40 [facility] (Rec: 03/13/24 11:20 [facility] [id number]) Current Condition History of Current Condition Onset Date 7-8 years ago Current Complaints pelvic pressure and heaviness along, stress incontinence throughout the day History of Current Condition over the last 7-8 years she is noting increased prolapse, she notes first thing that she doesn't feel the prolapse but then as she starts her day she will start to note her prolapse, its worse with bending and lifting. She stopped her exercises routine at the gym becuase she was worried about making anything worse. She is only walking at this time for exercise as she is not sure what is making the prolapse worse. Urinary Leaking can range from nothing to a slightly larger amount but Mikayla reports she is not aware of when the leakage is occuring but will notice a spot on her panty liner that can vary in severity day to day. She denies any leakage at night. past medical history includes osteoporosis and Mikayla would like to be able to engage in a weight training program at the gym without feeling that she is making the prolapse worse. Treatment Goals Patient/Caregiver Goals Decrease urinary leakage, improve strength and be able to engage in a weight lifting program at the gym PT-OP-C Subjective Start: 03/20/24 10:45 Freq: Status: Active Protocol: Document 04/10/24 10:46 [facility] (Rec: 04/10/24 11:33 [facility] [id number]) OP-PT Subjective Patient Comments Patient Comments pt notes she is waking up with a sensation that she need to void it is getting more persist PT-OP-I Pelvic Floor Start: 03/13/24 10:38 Freq: Status: Active Protocol: Document 03/13/24 10:40 [facility] (Rec: 03/13/24 12:41 [facility] [id number]) Pelvic Floor Assessment Urine Pelvic Floor Surgery No Urinary Symptoms Prolapse,Falling Out Feeling/ Heavy Other Urinary Symptoms urinary stress incontinence Leakage Size Small Leakage Cause Cough,Exercise,Lifting,Sneeze Other Leakage Causes leakage is happening throuout the day despite activity Leaks Per Day constant Voiding Frequency 6-8 times per day Nocturia 0-1 Urine Pad Type Panty Liner Pelvic Clock Pelvic Clock 12-3 Atrophy Pelvic Clock 3-6 Atrophy Pelvic Clock 6-9 Atrophy Pelvic Clock 9-12 Atrophy Pelvic Clock Other more atrophy noted on the left side of the pelvic clock Prolapse Prolapse Comments vaginal wall prolapse Contraction Ability Voluntary Contraction Weak Voluntary Relaxation Weak Manual Muscle Testing Left 1 Manual Muscle Testing Right 2 Manual Muscle Testing Anterior 1 Manual Muscle Testing Posterior 2 Muscle Endurance (Seconds) 4 PT-OP-Q Treatments Start: 03/13/24 12:26 Freq: Status: Active Protocol: Document 04/10/24 10:46 [facility] (Rec: 04/10/24 11:33 [facility] [id number]) Therapeutic Exercises Supine Exercises hip abduction with band Reps/Minutes 3 x 10 rep s pelvic floor long holds Comments 17.4 average and max 26 uv Other Exercises modified pelvic floor stretch Reps/Minutes hold 1-2 min cobra stretch Reps/Minutes old 1-2 min PT-OP-T Assessment and Plan Start: 03/13/24 10:38 Freq: Status: Active Protocol: Document 04/10/24 10:46 [facility] (Rec: 04/10/24 11:33 [facility] [id number]) Physical Therapy Assessment Assessment Summary Assessment Mikayla is showing good progress with pelvic floor tone and strengthening. She is experiencing bladder irritation though that is only at night but it is affecting her sleep. I did do some fascial work around her bladder today and added in some stretch to help release any tension around the bladder . Her resting tone looks great on biofeedback and she is not using her abdominal wall so I am a bit puzzled as to the bladder irritation. I had her hold off on quick flicks and do every other day for long holds. She then can do hip abduction with TB and ball squeezes on the days she is not isolating her pelvic floor. We will see if this plan helps calm down the bladder irritation at night. Physical Therapy Plan Frequency and Duration Frequency of Treatment 1x/Week Duration of treatment (weeks) 12 Plan of Care Start Date 03/13/24 Plan of Care End Date 05/29/24 Therapeutic Interventions Therapeutic Interventions Home Exercise Program,Patient/ Caregiver Education,Self-Care/ Home Management,Therapeutic Exercises Modalities Biofeedback Next Visit Focus/Plan Next Note Type Treatment Note Next Visit Plan check in with how Mikayla did with this new plan and after fascial release techniques
--- NOTE | 2024-04-17 13:23 | PT.OTN ---
Current Diagnoses Female genital prolapse, unspecified (04/17/24) Physical Therapy Treatment Note PT-OP-A Visit Information Start: 03/13/24 10:38 Freq: Status: Active Protocol: Document 04/17/24 10:41 [facility] (Rec: 04/17/24 11:33 [facility] [id number]) Out-Patient Physical Therapy Visit Information Visit Information Visit Type Treatment Note Visit Start Time 10:45 Visit Stop Time 11:30 Visit Number 5 PT-OP-B Current Condition Start: 03/13/24 10:38 Freq: Status: Active Protocol: Document 03/13/24 10:40 [facility] (Rec: 03/13/24 11:20 [facility] [id number]) Current Condition History of Current Condition Onset Date 7-8 years ago Current Complaints pelvic pressure and heaviness along, stress incontinence throughout the day History of Current Condition over the last 7-8 years she is noting increased prolapse, she notes first thing that she doesn't feel the prolapse but then as she starts her day she will start to note her prolapse, its worse with bending and lifting. She stopped her exercises routine at the gym becuase she was worried about making anything worse. She is only walking at this time for exercise as she is not sure what is making the prolapse worse. Urinary Leaking can range from nothing to a slightly larger amount but Mikayla reports she is not aware of when the leakage is occuring but will notice a spot on her panty liner that can vary in severity day to day. She denies any leakage at night. past medical history includes osteoporosis and Mikayla would like to be able to engage in a weight training program at the gym without feeling that she is making the prolapse worse. Treatment Goals Patient/Caregiver Goals Decrease urinary leakage, improve strength and be able to engage in a weight lifting program at the gym PT-OP-C Subjective Start: 03/20/24 10:45 Freq: Status: Active Protocol: Document 04/17/24 10:41 [facility] (Rec: 04/17/24 11:33 [facility] [id number]) OP-PT Subjective Patient Comments Patient Comments pt notes she stopped all the strengtheing exercises and by the next she felt normal and no irritation. She is not tryng to get back to two times per day. PT-OP-I Pelvic Floor Start: 03/13/24 10:38 Freq: Status: Active Protocol: Document 03/13/24 10:40 [facility] (Rec: 03/13/24 12:41 [facility] [id number]) Pelvic Floor Assessment Urine Pelvic Floor Surgery No Urinary Symptoms Prolapse,Falling Out Feeling/ Heavy Other Urinary Symptoms urinary stress incontinence Leakage Size Small Leakage Cause Cough,Exercise,Lifting,Sneeze Other Leakage Causes leakage is happening throuout the day despite activity Leaks Per Day constant Voiding Frequency 6-8 times per day Nocturia 0-1 Urine Pad Type Panty Liner Pelvic Clock Pelvic Clock 12-3 Atrophy Pelvic Clock 3-6 Atrophy Pelvic Clock 6-9 Atrophy Pelvic Clock 9-12 Atrophy Pelvic Clock Other more atrophy noted on the left side of the pelvic clock Prolapse Prolapse Comments vaginal wall prolapse Contraction Ability Voluntary Contraction Weak Voluntary Relaxation Weak Manual Muscle Testing Left 1 Manual Muscle Testing Right 2 Manual Muscle Testing Anterior 1 Manual Muscle Testing Posterior 2 Muscle Endurance (Seconds) 4 PT-OP-Q Treatments Start: 03/13/24 12:26 Freq: Status: Active Protocol: Document 04/17/24 13:17 [facility] (Rec: 04/17/24 13:18 [facility] [id number]) Therapeutic Exercises Supine Exercises foam roll stretch Comments worked with foam roll both verticle and horizontal for HEP Self-Care/Home Management Treatment Education Patient Education Body Mechanics Other Education body mechanics training for lifting tubs of clothes at the clinic where Mikayla volunters and for changing the angle of the leg press machine PT-OP-T Assessment and Plan Start: 03/13/24 10:38 Freq: Status: Active Protocol: Document 04/17/24 10:41 [facility] (Rec: 04/17/24 11:33 [facility] [id number]) Physical Therapy Assessment Goals 3 Impairment decreased strength and endurance of the pelvic floor Short Term Goal (STG) Mikayla is able to sustain a pelvic floor contraction x 10 seconds in supine STG Duration x 5 weeks Clinical Therapist Goal (LTG) Mikayla is able to sustain a pelvic floor contraction x 5 seconds or greater in standing LTG Duration x 12 weeks 2 Impairment pelvic pressure and heaviness with exertion and at the end of the day Short Term Goal (STG) Mikayla is educated on pelvic floor exercises to help with support to the pelvic organs and decreasing complaints of pelvic pressure STG Duration 4 weeks Penitentiary Goal (LTG) Mikayla reports a overall significant decrease in pelvic pressure and heaviness LTG Duration 12 weeks 1 Impairment urinary stress incontinence happening throughout the day despite activity Penitentiary Goal (LTG) Mikayla reports a overall reduction in urinary stress incontinence LTG Duration 12 weeks Assessment Summary Assessment Mikayla notes decreased irritation and is not experiencing the bladder irritation at night by stopping the leg press and giving a rest to her pelvic floor exercises for a week. 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 I also started a foam roll stretch for her to open up her chest and she tolerated this well. Physical Therapy Plan Frequency and Duration Frequency of Treatment 1x/Week Duration of treatment (weeks) 12 Plan of Care Start Date 03/13/24 Plan of Care End Date 05/29/24 Therapeutic Interventions Therapeutic Interventions Home Exercise Program,Patient/ Caregiver Education,Self-Care/ Home Management,Therapeutic Exercises Modalities Biofeedback Next Visit Focus/Plan Next Note Type Treatment Note Next Visit Plan review body mechnics training and continue with strengthening of the pelvic floor, review foam roll stretch
--- NOTE | 2024-06-27 16:29 | PT.OTN ---
Current Diagnoses Female genital prolapse, unspecified (06/27/24) Physical Therapy Treatment Note PT-OP-A Visit Information Start: 03/13/24 10:38 Freq: Status: Active Protocol: Document 06/27/24 15:15 [facility] (Rec: 06/27/24 16:29 [facility] [id number]) Out-Patient Physical Therapy Visit Information Visit Information Visit Type Treatment Note Visit Start Time 15:15 Visit Stop Time 16:00 Visit Number 6 PT-OP-B Current Condition Start: 03/13/24 10:38 Freq: Status: Active Protocol: Document 03/13/24 10:40 [facility] (Rec: 03/13/24 11:20 [facility] [id number]) Current Condition History of Current Condition Onset Date 7-8 years ago Current Complaints pelvic pressure and heaviness along, stress incontinence throughout the day History of Current Condition over the last 7-8 years she is noting increased prolapse, she notes first thing that she doesn't feel the prolapse but then as she starts her day she will start to note her prolapse, its worse with bending and lifting. She stopped her exercises routine at the gym becuase she was worried about making anything worse. She is only walking at this time for exercise as she is not sure what is making the prolapse worse. Urinary Leaking can range from nothing to a slightly larger amount but [place] reports she is not aware of when the leakage is occuring but will notice a spot on her panty liner that can vary in severity day to day. She denies any leakage at night. past medical history includes osteoporosis and [place] would like to be able to engage in a weight training program at the gym without feeling that she is making the prolapse worse. Treatment Goals Patient/Caregiver Goals Decrease urinary leakage, improve strength and be able to engage in a weight lifting program at the gym PT-OP-C Subjective Start: 03/20/24 10:45 Freq: Status: Active Protocol: Document 06/27/24 15:20 [facility] (Rec: 06/27/24 16:29 [facility] [id number]) OP-PT Subjective Patient Comments Patient Comments pr notes she has been doing the rollar, band work and bridges. The pelvic floor exercises were giving her the sensation of a irritation and gave her a feeling like she needed to go to the bathroom. Being aware of body mechanincs and how she lifts PT-OP-I Pelvic Floor Start: 03/13/24 10:38 Freq: Status: Active Protocol: Document 03/13/24 10:40 [facility] (Rec: 03/13/24 12:41 [facility] [id number]) Pelvic Floor Assessment Urine Pelvic Floor Surgery No Urinary Symptoms Prolapse,Falling Out Feeling/ Heavy Other Urinary Symptoms urinary stress incontinence Leakage Size Small Leakage Cause Cough,Exercise,Lifting,Sneeze Other Leakage Causes leakage is happening throuout the day despite activity Leaks Per Day constant Voiding Frequency 6-8 times per day Nocturia 0-1 Urine Pad Type Panty Liner Pelvic Clock Pelvic Clock 12-3 Atrophy Pelvic Clock 3-6 Atrophy Pelvic Clock 6-9 Atrophy Pelvic Clock 9-12 Atrophy Pelvic Clock Other more atrophy noted on the left side of the pelvic clock Prolapse Prolapse Comments vaginal wall prolapse Contraction Ability Voluntary Contraction Weak Voluntary Relaxation Weak Manual Muscle Testing Left 1 Manual Muscle Testing Right 2 Manual Muscle Testing Anterior 1 Manual Muscle Testing Posterior 2 Muscle Endurance (Seconds) 4 PT-OP-Q Treatments Start: 03/13/24 12:26 Freq: Status: Active Protocol: Document 04/17/24 13:17 [facility] (Rec: 04/17/24 13:18 [facility] [id number]) Therapeutic Exercises Supine Exercises foam roll stretch Comments worked with foam roll both verticle and horizontal for HEP Self-Care/Home Management Treatment Education Patient Education Body Mechanics Other Education body mechanics training for lifting tubs of clothes at the clinic where [place] volunters and for changing the angle of the leg press machine PT-OP-T Assessment and Plan Start: 03/13/24 10:38 Freq: Status: Active Protocol: Document 06/27/24 15:20 [facility] (Rec: 06/27/24 16:29 [facility] [id number]) Physical Therapy Assessment Goals 3 Impairment decreased strength and endurance of the pelvic floor Short Term Goal (STG) [place] is able to sustain a pelvic floor contraction x 10 seconds in supine goal met STG Duration x 5 weeks Licensed Plumber Goal (LTG) [place] is able to sustain a pelvic floor contraction x 5 seconds or greater in standing goal met and [place] is bracing prior to lifting weights LTG Duration x 12 weeks 2 Impairment pelvic pressure and heaviness with exertion and at the end of the day Short Term Goal (STG) [place] is educated on pelvic floor exercises to help with support to the pelvic organs and decreasing complaints of pelvic pressure goal met Licensed Plumber Goal (LTG) [place] reports a overall significant decrease in pelvic pressure and heaviness now symptoms are intermittent only and [place] describes this more of a feeling of irritation or swelling at the end of the day. 1 Licensed Plumber Goal (LTG) [place] reports a overall reduction in urinary stress incontinence overall symptoms are better, she will still find she has a little leak everynow and then. She is wearing a panty liner and only 1 per day. LTG Duration 12 weeks Assessment Summary Assessment Kami returned for her last check up only. She is feeling overall that her symptoms are much more under control and leakage has been reduced significantly. She is also much more aware of bracing with her core prior to lifting to avoid undue strain to her pelvic floor. She does at times at the end of the day feel pelvic irritation and swelling. We did talk today about pelvic decompression with a wedge as well as DHEA vaginal suppositories that may help with tissue irritation. She may also want to consider talking to her doctor regarding vaginal estrogen. At this point [place] is Ind with a HEP and will be discharged from PT Physical Therapy Plan Discharge Physical Therapy Discharge Reasons Goals Met
== END 2024-07-04 11:06 | disposition home or self-care (01) ==
LOC: PHYS 15:15
PROVIDERS: Family Provider Specialist; PCP Internal Medicine; Referring Provider Internal Medicine; Visit Provider Internal Medicine
DX: N81.9 Female genital prolapse, unspecified (principal)
CPT/HCPCS: 97110; 97140; 97161; 97535

== ENCOUNTER → 2024-07-11 10:00 | Outpatient (CLI) | payer OTHER, SELFPAY ==
--- NOTE | 2024-07-11 10:01 | DI.MRI.S_ITS ---
PROCEDURE: MR ABDOMEN WO/W CON INDICATIONS: Enlarging complex liver cyst TECHNIQUE: Coronal HASTE, axial 2D FLASH in- and [id number]; axial breath-hold T2 FSE. Dynamic axial VIBE during the administration of contrast; post-contrast coronal VIBE or 2D FLASH with fat saturation from the hepatic dome to the iliac crests. Optional diffusion weighted imaging and ADC may be performed. COMPARISON: [facility], [place], ABDOMEN W&WO CONTRAST, 10/11/2014, 12:48. FINDINGS: Image quality: Diagnostic. Lung bases: Unremarkable. Liver: No solid mass. Growing simple appearing cyst at the liver dome measuring 3 cm, previously 0.6 cm in 2015. No internal complexity. No rim enhancement. Additional punctate T2 hyperintense cysts are present, which are benign. Gallbladder: No gallstones or wall thickening. Biliary ducts: No biliary dilation. Pancreas: No ductal dilation. Spleen: Size is within normal limits. Adrenal Glands: No adrenal nodules. Kidneys and Ureters: No hydronephrosis. Benign angiomyolipoma of the superior pole of left kidney measuring 1.7 cm. No complex renal cystic lesion which requires follow up. Stomach and Bowel: Normal colonic caliber, without significant wall thickening. Peritoneum: No abnormal intraperitoneal fluid. No free air. Ventral Wall: No hernia. Abdominal Nodes: No retroperitoneal or mesenteric adenopathy by size criteria. Vessels: Aorta and inferior vena cava are normal in size. Bones: No aggressive osseous abnormality. 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 IMPRESSION: Growing, simple right hepatic lobe cyst measuring 3 cm. No suspicious internal features to warrant follow-up. Stable benign angiomyolipoma of the left kidney measuring 1.7 cm. Dictated by: Odell Borjas M.D. on 07/11/2024 at 16:23 Approved by: Odell Borjas M.D. on 07/11/2024 at 16:26
== END ==
PROVIDERS: Family Provider Specialist; PCP Registered Nurse; Referring Provider Internal Medicine; Visit Provider Internal Medicine
DX: K76.89 Other specified diseases of liver (principal); D17.71 Benign lipomatous neoplasm of kidney; G96.191 Perineural cyst
CPT/HCPCS: 74183; A9579

== ENCOUNTER → 2024-08-06 09:47 | Outpatient (CLI) | payer OTHER, SELFPAY ==
--- NOTE | 2024-08-06 09:48 | DI.MG.S_ITS ---
BILATERAL DIGITAL SCREENING MAMMOGRAM 3D/2D WITH CAD: 08/06/2024 CLINICAL: Routine screening. Comparison is made to exams dated: 05/16/2023 mammogram, 05/03/2022 mammogram, 05/01/2021 mammogram, 11/12/2020 mammogram, and 03/03/2020 mammogram - [facility]. The breasts are heterogeneously dense, which may obscure small masses (category c / 51-75% glandular tissue). Current study was also evaluated with a Computer Aided Detection (CAD) system. No significant masses, calcifications, or other findings are seen in either breast. There has been no significant interval change. IMPRESSION: NEGATIVE There is no mammographic evidence of malignancy. A 1 year screening mammogram is recommended. Based on the Tyrer Cuzick model (a risk assessment model) the patient's lifetime risk is 9.7% and her 10 year risk is 4.5%. According to the ACR, ACS, and NCCN guidelines, an annual breast MRI exam along with mammogram is recommended if the patient's lifetime risk is 20% or greater. This exam was interpreted at Station ID: [id number]. NOTE: For mammograms, a report in lay terms will be sent to the patient. Approximately 15% of breast malignancies will not be visualized mammographically. In the management of a palpable breast mass, a negative mammogram must not discourage biopsy of a clinically suspicious lesion. Electronically Signed By: Devonte [email or web address]:08/06/2024 14:59:39 letter sent: Normal Exam ACR BI-RADS Category 1: Negative
== END ==
LOC: MAMMO 09:48
PROVIDERS: Family Provider Specialist; PCP Registered Nurse; Referring Provider Registered Nurse; Visit Provider Registered Nurse
DX: Z12.31 Encounter for screening mammogram for malignant neoplasm of breast (principal); R92.333 Mammographic heterogeneous density, bilateral breasts
CPT/HCPCS: 77063; 77067

== ENCOUNTER 2024-10-31 09:36 | Day surgery (SDC) | payer OTHER, SELFPAY ==
[2024-10-31 09:56] VITALS: BP 131/75; PULSE 74; RESP 16; TEMP 36.7; O2SAT 99
[2024-10-31] MEDS: LACTATED RINGERS 1,000 ML 42 ML IV (10:04)
--- NOTE | 2024-10-31 10:30 | P.HP_ITS ---
History of Present Illness History of Present Illness Date Patient Seen: 10/31/24 Time Patient Seen: 10:30 Chief complaint: Colonoscopy Narrative: Mikayla is a 64-year-old woman here for a colonoscopy. Her last one was about 10 years ago and was normal. No family history of colon cancer. [facility] Surgical History (Updated 01/24/18 @ 12:00 by Vanessa Ruiz) History of inguinal hernia repair History of third molar tooth extraction Status post LASIK surgery Social History Smoking Status: Never smoker alcohol intake: current Meds Home Medications and Allergies Home Medications Medication Instructions Recorded Confirmed Type ascorbic acid (vitamin C) 500 mg 500 mg PO QDAY #0 tabs 04/08/16 11/05/20 History tablet cholecalciferol (vitamin D3) 50 1 tab PO QDAY #0 tabs 04/08/16 11/05/20 History mcg (2,000 unit) tablet (Vitamin D3) vitamin B complex (B 1 tab PO QDAY #0 tabs 04/08/16 11/05/20 History Complex-Vitamin B12 tablet) coenzyme Q10 30 mg capsule (CoQ-10) 30 mg PO DAILY 01/26/18 11/05/20 History lactobacillus combination no.8 3 3,000 mmu cells PO DAILY 01/26/18 11/05/20 History billion cell capsule (Adult Probiotic) sodium,potassium,mag sulfates 17.5 See Rx Instructions PO .COMPLEX 09/26/24 Rx gram-3.13 gram-1.6 gram oral soln #354 mL (Suprep Bowel Prep Kit) Allergies Allergy/AdvReac Type Severity Reaction Status Date / Time Penicillins Allergy Unknown Verified 10/31/24 10:03 Sulfa (Sulfonamide Allergy Unknown Rash Verified 10/31/24 10:03 Antibiotics) Exam Vital Signs (past 8 hours): - 10/31/24 09:56 Temperature 98.1 F Pulse Rate 74 Respiratory Rate 16 Blood Pressure 131/75 Pulse Oximetry 99 Oxygen Delivery Method Room Air Oxygen Delivery Method Room Air Const General: healthy appearing Resp Effort & Inspection: normal respiratory effort Assessment & Plan Assessment and plan (1) Colon cancer screening: Status: Acute Plan Colonoscopy for average risk colon cancer screening Time-Based Coding :: [TOTAL MINUTES] spent with patient and on the chart (including review of chart, obtaining history, exam, reviewing outside data, placing orders, documenting exam and treatment plan, and counseling patient) on [DATE]. PROFEE Client Account Assistant Document charge(s): No
--- NOTE | 2024-10-31 11:22 | PM.OP.COLON ---
Operative Date/Time/Diagnoses Date of procedure: 10/31/24 Time of procedure: 11:22 Pre-op diagnosis: Colon cancer screening Post-op diagnosis: same Procedure & Clinicians Study performed: Colonoscopy Same procedure as scheduled: Yes Surgeon: Prateek Gavin Procedure Notes Procedure in detail: Surgeon: Prateek Gavin MD Anesthesia: Daniel Alfaro MD Procedure: The patient was brought to the endoscopy suite, placed in left lateral decubitus position. The patient was connected to monitoring devices. A time-out was performed. Sedation was administered. Once the patient was adequately sedated, a digital rectal exam was performed and was normal. The scope was then inserted and advanced to the cecum where the appendiceal orifice was identified and photographed. Her colon was quite long and tortuous and required abdominal pressure and repositioning to reach the cecum. The scope was then slowly withdrawn over greater than 6 minutes. The mucosa was thoroughly inspected. No abnormalities were found. The scope was retroflexed in the rectum. The scope was straightened and removed. The patient was awakened and brought to recovery. Scope withdrawal time: 6 minutes Sedation time: 36 minutes EBL: 0 Findings: Long tortuous colon Post-procedure Recommendations: Colonoscopy in 10 years Disposition: PACU
[2024-10-31 11:32] VITALS: BP 117/78; PULSE 64; RESP 16; O2SAT 98
[2024-10-31 11:35] VITALS: BP 113/71; PULSE 64; RESP 16; TEMP 36.2; O2SAT 98
[2024-10-31 11:45] VITALS: BP 112/60; PULSE 74; RESP 16; TEMP 36.2; O2SAT 98
--- NOTE | 2024-10-31 12:51 | SUR.PHASEII ---
Transition of care from ANGEL Stevens to ANGEL Quevedo at 1241. In handoff report, this RN is notified pt's IV infiltrated. IV removed prior to transition of care, limb elevated, pressure dressing and cold pack applied. Pt denies RUE pain. Pt and instructed to apply ice as needed and contact [facility] or come to ER if swelling/pain worsens.
[2024-10-31 12:58] VITALS: BP 125/74; PULSE 57; RESP 16; O2SAT 98
--- NOTE | 2024-10-31 13:50 | SUR.PHASEII ---
Heat pack applied to RUE, elevated on 2 pillows per anesthesia
[2024-10-31 14:03] VITALS: BP 130/62; PULSE 59; RESP 14; TEMP 36.4; O2SAT 97
== END 2024-10-31 14:14 | disposition home or self-care (01) ==
PROVIDERS: Family Provider Specialist; PCP Registered Nurse; Referring Provider Registered Nurse; Visit Provider Surgery
PROC: 0DJD8ZZ Inspection of Lower Intestinal Tract, Via Natural or Artificial Opening Endoscopic (ICD-10-PCS; CPT 45378; principal; 2024-10-31 11:00)
DX: Z12.11 Encounter for screening for malignant neoplasm of colon (principal)
CPT/HCPCS: 45378; J1885; J2250; J2405; J2704; J3010